=== PATIENT | male | born 1950 | race African-American/Black ===

== ENCOUNTER 2017-01-08 06:53 | Emergency (ER) | payer MEDICARE, MEDICAID ==
[~2017-01-08] VITALS: Ht 182.9 cm; Wt 88.0 kg
[~2017-01-08 06:53] MED LIST: HYDR-3307 PO; SERT25TA PO
[2017-01-08 06:54] VITALS: BP 120/78
[2017-01-08] MEDS ORDERED: OXYcodone/APAP 5/325MG TABLET PO ONE (07:30)
[2017-01-08] MEDS ORDERED: OXYcodone/APAP 5/325MG TABLET ONE (07:38)
== END 2017-01-08 09:22 | disposition home or self-care (01) ==
LOC: ED 09:16
DX: S29.012A Strain of muscle and tendon of back wall of thorax, initial encounter (principal); R07.89 Other chest pain; M51.34 Other intervertebral disc degeneration, thoracic region; Y04.8XXA Assault by other bodily force, initial encounter; Y93.89 Activity, other specified; Y92.410 Unspecified street and highway as the place of occurrence of the external cause; Y99.9 Unspecified external cause status
CPT/HCPCS: 72072; 93005; 99284

== ENCOUNTER 2017-06-05 06:39 | Emergency (ER) | payer MEDICARE, MEDICAID ==
[~2017-06-05] VITALS: Ht 185.4 cm; Wt 82.0 kg
[2017-06-05] MEDS ORDERED: SODIUM CHLORIDE 0.9% 1,000 ML IV ONE (06:48)
[2017-06-05] MEDS ORDERED: SODIUM CHLORIDE 0.9% 1,000ML IVBOLUS ONE (07:00)
[2017-06-05] MEDS ORDERED: SODIUM CHLORIDE FLUSH 10ML SYR IVF ONE (07:00)
[2017-06-05] MEDS ORDERED: ONDANSETRON 2MG/ML, 2ML IVPush ONE (07:00)
[2017-06-05] MEDS ORDERED: FAMOTIDINE 20 MG/2 ML IVP ONE (07:00)
[2017-06-05] MEDS ORDERED: FAMOTIDINE 20 MG/2 ML ONE (07:07)
[2017-06-05] MEDS ORDERED: ONDANSETRON 2MG/ML, 2ML ONE (07:07)
[2017-06-05 07:22] LABS: HEMATOCRIT 41.8 % (39.2-51.8); HEMOGLOBIN 13.8 g/dL (13.7-18.0); WHITE BLOOD COUNT 8.3 x10^3/uL (3.4-10)
[2017-06-05 07:35] LABS: ASPARTATE AMINO TRANSFERASE 11 U/L (15-37); BLOOD UREA NITROGEN 14 mg/dL (7-18)
[2017-06-05 08:29] VITALS: BP 135/91
== END 2017-06-05 08:54 | disposition home or self-care (01) ==
LOC: ED 08:06
DX: A08.4 Viral intestinal infection, unspecified (principal); J44.9 Chronic obstructive pulmonary disease, unspecified; I10 Essential (primary) hypertension; Z88.0 Allergy status to penicillin; Z59.0 Homelessness
CPT/HCPCS: 36415; 80053; 83605; 83690; 85025; 93005; 96361; 96374; 96375; 99285; J2405; J7030; S0028

== ENCOUNTER 2019-07-08 09:59 | Emergency (ER) | payer MEDICARE, MEDICAID ==
[~2019-07-08] VITALS: Ht 182.9 cm; Wt 85.0 kg
[~2019-07-08 09:59] MED LIST changes: -HYDR-3307 PO; +HYDR-36 PO
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
[2019-07-08] MEDS ORDERED: FUROSEMIDE 40 MG TABLET ONE (10:16)
[2019-07-08] MEDS ORDERED: FUROSEMIDE 40 MG TABLET PO ONE (10:30)
--- NOTE | 2019-07-08 10:40 | NUR ---
PT MEDICATED PER MAR, LAB IN TO DRAW PT
[2019-07-08 10:53] LABS: ALANINE AMINOTRANSFERASE 22 U/L (12-78); ALBUMIN 3.3 g/dL (3.4-5.0); ANION GAP 4 mmol/L (5-15); CALCIUM 8.6 mg/dL (8.5-10.1); CHLORIDE 108 mmol/L (98-107); CREATININE 0.96 mg/dL (0.7-1.3)
[2019-07-08 10:57] LABS: ALKALINE PHOSPHATASE 133 U/L (45-117); BASOPHILS # (AUTO) 0.02 x10^3/uL (0-0.1); BASOPHILS % (AUTO) 0 % (0-1); BILIRUBIN,TOTAL 0.3 mg/dL (0.2-1.0); EOSINOPHILS # (AUTO) 0.37 x10^3/uL (0-0.4); EOSINOPHILS % (AUTO) 6 % (1-7); LYMPHOCYTES # (AUTO) 1.17 x10^3/uL (1-3.4); LYMPHOCYTES % (AUTO) 17 % (22-44); MD NO; MEAN CORPUSCULAR HEMOGLOBIN 28.4 pg (27.5-34.5); MEAN CORPUSCULAR HGB CONC 32.1 g/dL (33.2-36.2); MEAN CORPUSCULAR VOLUME 88.7 fL (81-97); MEAN PLATELET VOLUME 8.6 fL (7.4-10.4); MONOCYTES # (AUTO) 0.91 x10^3/uL (0.2-0.8); MONOCYTES % (AUTO) 13 % (2-9); NEUTROPHILS # (AUTO) 4.33 x10^3/uL (1.8-6.8); NEUTROPHILS % (AUTO) 64 % (42-75); PLATELET COUNT 256 x10^3/uL (130-400); RED BLOOD COUNT 4.91 x10^6/uL (4.38-5.82); RED CELL DISTRIBUTION WIDTH 15.2 % (9.4-14.8); TOTAL PROTEIN 7.7 g/dL (6.4-8.2)
--- NOTE | 2019-07-08 12:21 | NUR ---
BREAK RN FOR PRIMARY RN ALEXANDREA. PT CLEARED FOR DISCHARGE BY DR. MARINELLI, INTO DISCHARGE PT, PT REFUSES TO ACCEPT DISCHARGE PAPERS OR SPEAK WITH THIS RN. STATES "I HAVE NOT SEEN THE DOCTOR, I WANT TO TALK TO HIM, I'M NOT LEAVING UNTIL I DO." DISCUSSED WITH DR. MARINELLI, AWARE, TO SEE PT. PT BP ELEVATED, DISCUSSED WITH , AGATA, PROVIDING PT WITH PRESCRIPTION FOR HOME BP MANAGEMENT. NO NEW ORDERS RECEIVED IN ED FOR BP. CALL LIGHT IN REACH. FALL PRECUATIONS IN PLACE. SIDE RAILS UPX2.
[2019-07-08 12:26] VITALS: BP 156/102
--- NOTE | 2019-07-08 12:30 | NUR ---
BREAK RN. DR. MARINELLI AT BEDSIDE DISCUSSING POC AND DISCHARGE INSTRUCTIONS WITH PT. REPORT AND CARE BACK TO PRIMARY DYLAN LECHUGA AT THIS TIME.
--- NOTE | 2019-07-08 12:35 | NUR ---
Patient/Caregiver given discharge instructions and they have confirmed that they understand the instructions. Patient ambulatory with steady gait.
== END 2019-07-08 12:43 | disposition home or self-care (01) ==
LOC: ED 12:36
DX: R60.9 Edema, unspecified (principal); I10 Essential (primary) hypertension; J44.9 Chronic obstructive pulmonary disease, unspecified; Z87.891 Personal history of nicotine dependence
CPT/HCPCS: 36415; 71045; 80053; 83880; 85025; 93005; 99284

== ENCOUNTER 2019-07-27 09:02 | Emergency (ER) | payer MEDICARE, MEDICAID ==
[~2019-07-27] VITALS: Ht 185.4 cm; Wt 90.0 kg
[2019-07-27] MEDS ORDERED: LISI-167 PO (09:17)
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
--- NOTE | 2019-07-27 10:22 | NUR ---
Resting in [facility]. No needs.
[2019-07-27 10:37] LABS: MEAN CORPUSCULAR HEMOGLOBIN 28.1 pg (27.5-34.5); MEAN CORPUSCULAR HGB CONC 32.1 g/dL (33.2-36.2); MEAN CORPUSCULAR VOLUME 87.4 fL (81-97); MEAN PLATELET VOLUME 8.5 fL (7.4-10.4); PLATELET COUNT 266 x10^3/uL (130-400); RED BLOOD COUNT 4.98 x10^6/uL (4.38-5.82); RED CELL DISTRIBUTION WIDTH 14.4 % (9.4-14.8)
[2019-07-27 10:46] LABS: ALBUMIN 3.4 g/dL (3.4-5.0); ANION GAP 6 mmol/L (5-15); CALCIUM 8.8 mg/dL (8.5-10.1); CHLORIDE 111 mmol/L (98-107); CREATININE 1.21 mg/dL (0.7-1.3)
[2019-07-27 11:02] LABS: BASOPHILS # (AUTO) 0.02 x10^3/uL (0-0.1); BASOPHILS % (AUTO) 0 % (0-1); EOSINOPHILS # (AUTO) 0.35 x10^3/uL (0-0.4); EOSINOPHILS % (AUTO) 6 % (1-7); LYMPHOCYTES # (AUTO) 1.14 x10^3/uL (1-3.4); LYMPHOCYTES % (AUTO) 19 % (22-44); MD SCAN; MONOCYTES # (AUTO) 0.85 x10^3/uL (0.2-0.8); MONOCYTES % (AUTO) 14 % (2-9); NEUTROPHILS # (AUTO) 3.74 x10^3/uL (1.8-6.8); NEUTROPHILS % (AUTO) 61 % (42-75)
[2019-07-27 11:15] VITALS: BP 128/78
[2019-07-27] MEDS ORDERED: hydrOXyzine 50MG TABLET ONE (11:27)
[2019-07-27] MEDS ORDERED: DEXAMETHASONE 4 MG TABLET ONE (11:27)
[2019-07-27] MEDS ORDERED: DEXAMETHASONE 4 MG TABLET PO ONE (11:30)
--- NOTE | 2019-07-27 11:30 | NUR ---
Meds admin. No other needs.
--- NOTE | 2019-07-27 11:57 | NUR ---
Patient/Caregiver given discharge instructions and they have confirmed that they understand the instructions. Patient ambulatory with steady gait.
== END 2019-07-27 11:57 | disposition home or self-care (01) ==
LOC: ED 11:51
DX: M79.89 Other specified soft tissue disorders (principal); M79.641 Pain in right hand; I10 Essential (primary) hypertension; J44.9 Chronic obstructive pulmonary disease, unspecified; Z59.0 Homelessness
CPT/HCPCS: 36415; 73130; 80048; 82040; 85025; 93971; 99284; Q0177

== ENCOUNTER 2020-01-14 11:11 | Emergency (ER) | payer MEDICARE ==
[~2020-01-14] VITALS: Ht 185.4 cm; Wt 99.3 kg
[~2020-01-14 11:11] MED LIST changes: +HYDR-3246 PO; -HYDR-36 PO; +LISI-167 PO
[2020-01-14] MEDS ORDERED: HYDROcodone/APAP 5/325 TABLET ONE (11:46)
--- NOTE | 2020-01-14 11:50 | NUR ---
PT MEDICATED PER ERP ORDER FOR 7/10 BILATERAL HAND PAIN. XRAY COMPLETED, AWAITING LAB DRAW. CALL LIGHT WITHIN REACH.
[2020-01-14] MEDS ORDERED: HYDROcodone/APAP 5/325 TABLET PO ONE (12:00)
[2020-01-14 12:18] LABS: CHLORIDE 110 mmol/L (98-107)
[2020-01-14 12:23] LABS: ANION GAP 8 mmol/L (5-15); CALCIUM 8.9 mg/dL (8.5-10.1); CREATININE 1.02 mg/dL (0.7-1.3)
[2020-01-14 12:38] LABS: BASOPHILS # (AUTO) 0.04 x10^3/uL (0-0.1); BASOPHILS % (AUTO) 1 % (0-1); EOSINOPHILS # (AUTO) 0.29 x10^3/uL (0-0.4); EOSINOPHILS % (AUTO) 3 % (1-7); LYMPHOCYTES # (AUTO) 1.35 x10^3/uL (1-3.4); LYMPHOCYTES % (AUTO) 16 % (22-44); MD NO; MEAN CORPUSCULAR HEMOGLOBIN 27.6 pg (27.5-34.5); MEAN CORPUSCULAR VOLUME 86.2 fL (81-97); MEAN PLATELET VOLUME 8.9 fL (7.4-10.4); MONOCYTES # (AUTO) 0.85 x10^3/uL (0.2-0.8); MONOCYTES % (AUTO) 10 % (2-9); NEUTROPHILS # (AUTO) 6.05 x10^3/uL (1.8-6.8); NEUTROPHILS % (AUTO) 70 % (42-75); PLATELET COUNT 271 x10^3/uL (130-400); RED BLOOD COUNT 4.93 x10^6/uL (4.38-5.82); RED CELL DISTRIBUTION WIDTH 14.2 % (9.4-14.8)
[2020-01-14 13:27] VITALS: BP 128/74
== END 2020-01-14 13:30 | disposition home or self-care (01) ==
LOC: ED 12:43
DX: M19.042 Primary osteoarthritis, left hand (principal); M19.041 Primary osteoarthritis, right hand; I10 Essential (primary) hypertension; J44.9 Chronic obstructive pulmonary disease, unspecified
CPT/HCPCS: 36415; 80048; 84550; 85025; 99284